=== PATIENT | male | born 1945 | race Caucasian/White ===

== ENCOUNTER 2019-10-27 09:34 | Day surgery (SDC) | payer MEDICARE, BC ==
[~2019-10-27 09:34] MED LIST: Midazolam 1 MG/ML 2 ML SDV ONE; Propofol 200 MG/20 ML SDV ONE; fentaNYL 100 MCG/2 ML SDV ONE
[2019-10-27] MEDS ORDERED: Sodium Chloride 0.9% 1,000 ML IV SCH (10:30)
[2019-10-27 12:55] VITALS: BP 128/62; PULSE 65
--- NOTE | 2019-10-28 08:40 | OR ---
DATE OF PROCEDURE: 10/27/2019 SURGEON: Howie De Jesus MD PROCEDURE: Colonoscopy. FINDINGS: Normal colonoscopy. PREOPERATIVE DIAGNOSIS: Concern for change in bowel habits. POSTOPERATIVE DIAGNOSIS: Concern for change in bowel habits. RISKS: Risks, benefits, alternatives, and limitations including, but not limited to infection, bleeding, and perforation were explained to the patient, who wished to proceed. PROCEDURE IN DETAIL: The patient was placed in left lateral decubitus position. Digital rectal exam was performed without abnormality. The scope was introduced and advanced atraumatically to the ileocecal valve. The ileocecal valve was cannulated. No abnormalities noted. The scope was brought back through the ascending, transverse, descending colon, and retroflexed. No old or new blood. No masses. No polyps. No diverticulosis. The patient tolerated the procedure well. Howie De Jesus MD /[id number]
== END 2019-10-27 13:34 | disposition home or self-care (01) ==
LOC: JP.SDS 09:34
PROVIDERS: ATTEND Surgery
DX: R19.4 Change in bowel habit (principal); I51.89 Other ill-defined heart diseases; E03.9 Hypothyroidism, unspecified; K21.9 Gastro-esophageal reflux disease without esophagitis; G20 Parkinson's disease; Z86.010 Personal history of colon polyps
CPT/HCPCS: 45378; J2250; J2704; J3010; J7030

== ENCOUNTER 2022-11-07 11:18 | Emergency (ER) | payer MEDICARE, BC ==
[2022-11-07] MEDS ORDERED: Famotidine 20 MG/2 ML SDV IVPUSH ONE (11:42)
[2022-11-07] MEDS ORDERED: Sodium Chloride 0.9% 10 ML Syringe FLUSH PRN ×2 (11:43→11:44)
[2022-11-07] MEDS ORDERED: Sodium Chloride 0.9% 1,000 ML IV SCH (11:45)
[2022-11-07 12:16] LABS: ESTIMATED GFR 63 mL/min (>60)
[2022-11-07] MEDS ORDERED: Pantoprazole 40 MG Vial IVPUSH ONE (12:29)
[2022-11-07 15:44] VITALS: BP 144/73; PULSE 71
== END 2022-11-07 16:45 | disposition home or self-care (01) ==
LOC: JP.ED 11:18
DX: K92.2 Gastrointestinal hemorrhage, unspecified (principal); G20 Parkinson's disease; E78.00 Pure hypercholesterolemia, unspecified; K21.9 Gastro-esophageal reflux disease without esophagitis; E03.9 Hypothyroidism, unspecified; Z79.82 Long term (current) use of aspirin; Z79.899 Other long term (current) drug therapy; Z87.891 Personal history of nicotine dependence; Z20.822 Contact with and (suspected) exposure to COVID-19
CPT/HCPCS: 36415; 80053; 83690; 85014; 85018; 85025; 85610; 85730; 86850; 86900; 86901; 96361; 96374; 96375; 99284; C9113; J3490; J7030; U0002